=== PATIENT | female | born 1990 | race Caucasian/White ===

== ENCOUNTER 2021-04-01 07:53 | Outpatient (CLI) | payer BC, SELFPAY ==
[2021-04-01 19:01] LABS: Hematocrit 45.7 % (37.0-47.0); Hemoglobin 14.7 g/dL (12.0-15.0); Mean Corpuscular HGB Conc 32.2 g/dl (32-36); Mean Corpuscular Hemoglobin 28.5 pg (26-34); Mean Corpuscular Volume 88.6 fl (80-100); Mean Platelet Volume 10.1 fl (7.4-10.4); Platelet Count Result 331 k/mm3 (150-375); Red Blood Count 5.16 M/mm3 (4.2-5.4); Red Cell Distribution Width 12.6 % (11.5-14.5); White Blood Count 6.5 K/mm3 (4.5-10.0)
[2021-04-01 21:21] LABS: Alanine Aminotransferase 21 U/L (4-35); Albumin Level 4.4 g/dL (3.5-5.1); Alkaline Phosphatase 102 U/L (38-126); Anion Gap 8 mmol/L (8-16); Aspartate Amino Transferase 28 U/L (14-36); Bilirubin,Total 0.5 mg/dL (0.2-1.3); Blood Urea Nitrogen 12 mg/dL (7-17); Calcium 9.7 mg/dL (8.4-10.2); Carbon Dioxide 26 mmol/L (22-30); Chloride 100 mmol/L (98-107); Cholesterol 152 mg/dL (0-200); Estimated Glomerular Filt Rate > 60; Glucose 105 mg/dL (65-110); HDL Direct 64 mg/dL; Potassium 4.2 mmol/L (3.4-5.0); Sodium 134 mmol/L (137-145); Triglycerides 53 mg/dL (<150)
[2021-04-01 21:32] LABS: LDL Cholesterol Direct 74 mg/dL
[2021-04-01 21:42] LABS: Vitamin D 25 Hydroxy 23.5 ng/mL
== END 2021-04-01 07:54 | disposition home or self-care (01) ==
LOC: ANHBWCLAB 07:56
PROVIDERS: PCP Family Medicine; Visit Provider Family Medicine
DX: Z00.00 Encounter for general adult medical examination without abnormal findings (principal); E66.9 Obesity, unspecified; F41.9 Anxiety disorder, unspecified; E53.8 Deficiency of other specified B group vitamins; E55.9 Vitamin D deficiency, unspecified
CPT/HCPCS: 36415; 80053; 80061; 82306; 82607; 85027

== ENCOUNTER 2021-11-08 10:06 | Outpatient (CLI) | payer BC, SELFPAY | END 2021-11-08 10:07 | disposition home or self-care (01) | LOC: ANHBWCLAB 10:08 | PROVIDERS: PCP Family Medicine; Visit Provider Family Medicine | DX: E53.8 Deficiency of other specified B group vitamins (principal); E55.9 Vitamin D deficiency, unspecified | CPT/HCPCS: 36415; 82306; 82607 ==

== ENCOUNTER 2022-06-30 09:45 | Outpatient (CLI) | payer BC, SELFPAY ==
--- NOTE | ~2022-06-30 | XR_ITS ---
XR lumbar spine 2-3V DATE: 06/30/2022 09:55 INDICATION: Low back pain TECHNIQUE: AP, lateral, coned lateral lumbosacral views COMPARISON: None FINDINGS: Normal alignment of the lumbar spine. No fracture or bone destruction or spondylolisthesis. The included lower thoracic and lumbar pedicles are intact. Lumbar and lumbosacral interspaces are w ell preserved. The sacroiliac joints are normal. IMPRESSION: Negative Reviewed, dictated and finalized at location B. [employer] IMPRESSION: Negative
== END 2022-06-30 09:46 | disposition home or self-care (01) ==
LOC: ANHBWCIMG 09:46
PROVIDERS: PCP Family Medicine; Visit Provider Family Medicine
DX: M54.50 Low back pain, unspecified (principal)
CPT/HCPCS: 72100

== ENCOUNTER 2022-09-28 11:14 | Outpatient (CLI) | payer BC, SELFPAY ==
[2022-09-28 17:28] LABS: Alanine Aminotransferase 23 U/L (6-35); Albumin Level 4.6 g/dL (3.5-5.1); Alkaline Phosphatase 88 U/L (38-126); Anion Gap 4 mmol/L (8-16); Aspartate Amino Transferase 61 U/L (14-36); Bilirubin,Total 0.6 mg/dL (0.2-1.3); Blood Urea Nitrogen 7 mg/dL (7-17); Calcium 9.3 mg/dL (8.4-10.2); Carbon Dioxide 30 mmol/L (22-30); Chloride 104 mmol/L (98-107); Cholesterol 139 mg/dL (0-200); Estimated Glomerular Filt Rate > 60; Glucose 95 mg/dL (65-110); HDL Direct 53 mg/dL; Potassium 4.2 mmol/L (3.4-5.0); Sodium 138 mmol/L (137-145); Triglycerides < 30 mg/dL (<150)
[2022-09-28 17:40] LABS: LDL Cholesterol Direct 59 mg/dL
[2022-09-28 18:10] LABS: Basophils Percent Auto 0.3 % (0.2-1.2); Eosinophils Percent Auto 0.1 % (0-4.4); Hematocrit 47.8 % (37.0-47.0); Hemoglobin 15.6 g/dL (12.0-15.0); Immature Granulocyte Absolute 0.04 K/mm3 (0.00-0.031); Immature Granulocyte Percent A 0.5 % (0-0.5); Lymphocytes Absolute Auto 1.11 K/mm3 (0.9-3.2); Lymphocytes Percent Auto 14.5 % (18.3-44.2); Mean Corpuscular HGB Conc 32.6 g/dl (32-36); Mean Corpuscular Hemoglobin 29.8 pg (26-34); Mean Corpuscular Volume 91.4 fl (80-100); Mean Platelet Volume 10.6 fl (7.4-10.4); Monocytes Absolute Auto 0.3 K/mm3 (0.1-0.6); Monocytes Percent Auto 3.3 % (2.6-8.5); Neutrophils Absolute Auto 6.2 K/mm3 (1.3-6.7); Neutrophils Percent Auto 81.3 % (45.5-73.1); Platelet Count Result 373 k/mm3 (150-375); Red Blood Count 5.23 M/mm3 (4.2-5.4); White Blood Count 7.7 K/mm3 (4.5-10.0)
[2022-09-28 18:54] LABS: Vitamin D 25 Hydroxy 38.7 ng/mL
== END 2022-09-28 11:15 | disposition home or self-care (01) ==
LOC: ANHBWCLAB 11:15
PROVIDERS: PCP Family Medicine; Visit Provider Family Medicine
DX: Z00.00 Encounter for general adult medical examination without abnormal findings (principal); F41.9 Anxiety disorder, unspecified; E66.9 Obesity, unspecified; E55.9 Vitamin D deficiency, unspecified; E53.8 Deficiency of other specified B group vitamins; M54.50 Low back pain, unspecified; M54.6 Pain in thoracic spine
CPT/HCPCS: 36415; 80053; 80061; 82306; 82607; 85025

== ENCOUNTER 2022-11-10 07:43 | Outpatient (CLI) | payer BC, SELFPAY ==
--- NOTE | ~2022-11-10 | XR_ITS ---
PA, oblique, and lateral views of the right fifth finger CLINICAL HISTORY: Pain, dog bite FINDINGS: No fracture or dislocation seen. Osseous alignment is anatomic. Joint spaces are preserved. Soft tissues are unremarkable. IMPRESSION: Unremarkable exam. Reviewed, dictated and finalized at location M. IMPRESSION: Unremarkable exam.
== END 2022-11-10 07:44 | disposition home or self-care (01) ==
LOC: ANHBWCIMG 07:44
PROVIDERS: PCP Family Medicine; Visit Provider Nurse Practitioner Family
DX: S69.90XA Unspecified injury of unspecified wrist, hand and finger(s), initial encounter (principal); X58.XXXA Exposure to other specified factors, initial encounter
CPT/HCPCS: 73140

== ENCOUNTER 2023-02-16 10:50 | Outpatient (CLI) | payer BC, SELFPAY ==
[2023-02-16 20:07] LABS: Beta HCG Quantitative < 2.39 mIU/ML
[2023-02-16 20:13] LABS: Basophils Percent Auto 0.4 % (0.2-1.2); Eosinophils Percent Auto 0.6 % (0-4.4); Hematocrit 47.3 % (37.0-47.0); Hemoglobin 14.5 g/dL (12.0-15.0); Immature Granulocyte Absolute 0.03 K/mm3 (0.00-0.031); Immature Granulocyte Percent A 0.6 % (0-0.5); Lymphocytes Absolute Auto 1.33 K/mm3 (0.9-3.2); Lymphocytes Percent Auto 25.2 % (18.3-44.2); Mean Corpuscular HGB Conc 30.7 g/dl (32-36); Mean Corpuscular Hemoglobin 28.7 pg (26-34); Mean Corpuscular Volume 93.5 fl (80-100); Mean Platelet Volume 10.1 fl (7.4-10.4); Monocytes Absolute Auto 0.4 K/mm3 (0.1-0.6); Neutrophils Absolute Auto 3.4 K/mm3 (1.3-6.7); Neutrophils Percent Auto 65.2 % (45.5-73.1); Platelet Count Result 296 k/mm3 (150-375); Red Blood Count 5.06 M/mm3 (4.2-5.4); Red Cell Distribution Width 13.4 % (11.5-14.5); White Blood Count 5.3 K/mm3 (4.5-10.0)
== END 2023-02-16 10:51 | disposition home or self-care (01) ==
LOC: ANHBWCLAB 10:52
PROVIDERS: PCP Nurse Practitioner Adult Health; Visit Provider Family Medicine
DX: R74.01 Elevation of levels of liver transaminase levels (principal); D75.1 Secondary polycythemia; N92.6 Irregular menstruation, unspecified
CPT/HCPCS: 36415; 84702; 85025

== ENCOUNTER 2023-11-14 10:44 | Outpatient (CLI) | payer OTHER, SELFPAY ==
[2023-11-14 19:00] LABS: Hematocrit 45.4 % (37.0-47.0); Hemoglobin 14.3 g/dL (12.0-15.0); Mean Corpuscular HGB Conc 31.5 g/dl (32-36); Mean Corpuscular Hemoglobin 29.1 pg (26-34); Mean Corpuscular Volume 92.5 fl (80-100); Mean Platelet Volume 10.5 fl (7.4-10.4); Platelet Count Result 306 k/mm3 (150-375); Red Blood Count 4.91 M/mm3 (4.2-5.4); Red Cell Distribution Width 12.8 % (11.5-14.5); White Blood Count 6.6 K/mm3 (4.5-10.0)
[2023-11-14 19:03] LABS: Alanine Aminotransferase 22 U/L (6-35); Albumin Level 4.2 g/dL (3.5-5.1); Alkaline Phosphatase 77 U/L (38-126); Anion Gap 5 mmol/L (4-12); Aspartate Amino Transferase 61 U/L (14-36); Bilirubin,Total 0.5 mg/dL (0.2-1.3); Blood Urea Nitrogen 9 mg/dL (7-17); Calcium 9.2 mg/dL (8.4-10.2); Carbon Dioxide 26 mmol/L (22-30); Chloride 105 mmol/L (98-107); Cholesterol 122 mg/dL (0-200); Estimated Glomerular Filt Rate > 60; Glucose 89 mg/dL (65-110); HDL Direct 55 mg/dL; Potassium 4.1 mmol/L (3.4-5.0); Sodium 136 mmol/L (137-145); Triglycerides 43 mg/dL (<150)
[2023-11-14 19:14] LABS: LDL Cholesterol Direct 62 mg/dL
[2023-11-16 15:24] LABS: Insulin Level Total 16.8 uIU/mL
== END 2023-11-14 10:45 | disposition home or self-care (01) ==
PROVIDERS: PCP Nurse Practitioner Adult Health; Visit Provider Nurse Practitioner Adult Health
DX: Z13.9 Encounter for screening, unspecified (principal); E28.2 Polycystic ovarian syndrome; E66.9 Obesity, unspecified
CPT/HCPCS: 36415; 80053; 80061; 83036; 83525; 84443; 85027

== ENCOUNTER 2023-12-29 12:29 | Emergency (ER) | payer OTHER, SELFPAY ==
[2023-12-29 12:44] VITALS: BP 118/80; PULSE 68; RESP 16; TEMP 36.9; O2SAT 100
--- NOTE | 2023-12-29 12:48 | ED.EXTPRO ---
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 The pain came on suddenly. She also reports some tingling to the 4th and 5th fingers intermittently. Pain increases with movement. Currently rates her pain 2/10. No treatment prior to arrival. Related Data Home Medications Medication Instructions Recorded Confirmed No Home Medications 12/29/23 12/29/23 Allergies Allergy/AdvReac Type Severity Reaction Status Date / Time cephalexin [From Keflex] Allergy Unknown Unknown Verified 12/29/23 12:38 Review of Systems Review of Systems: CONSTITUTIONAL: Denies body aches, fever, chills, or sweats. EYES: Denies visual changes, redness, or discharge. ENT: Denies rhinorrhea, congestion, sore throat, or otalgia. CARDIOVASCULAR: Denies chest pain, palpitations, or edema. RESPIRATORY: Denies cough or dyspnea. GASTROINTESTINAL: Denies abdominal pain, nausea, vomiting, or diarrhea. GENITOURINARY: Denies dysuria or hematuria. SKIN: Denies rash, itching, or wounds. MUSCULOSKELETAL: Denies back pain, or myalgia.+ left wrist pain NEUROLOGIC: Denies headache, numbness, or weakness.+ fingers tingling PSYCH: Denies depression or anxiety. PMFSH Past Medical History Medical History Bronchitis Surgical History Surgical History H/O foot surgery Family History Family History Mother Depression Father Hypertension Alcohol abuse Grandparent COPD (chronic obstructive pulmonary disease) Diabetes mellitus Grandparent Uterine cancer Social History Social History Smoking status: Never smoker Alcohol intake: current Drinks per week: 1 Substance use: never Lack of Transportation: No Lack of Food: Never True Current Housing: I Have Housing Concerned About Future Housing: No Difficulty Paying Gas/Electric Bills: No Difficulty Paying for Meds: No Currently Unemployed: No Education: Trade/Vocational Certificate Difficulty w/ Childcare or Family Care: No Comments At time of signature, I have reviewed and agree with nursing past medical, surgical, social and family history unless otherwise noted. Please see nursing chart for further information. There is no relevant family history pertinent to the presenting complaint Exam Narrative: GENERAL: Well-appearing, well-nourished, and in no acute distress. HEAD: Normocephalic, atraumatic. EYES: EOMI. No redness or drainage. Conjunctivae normal. ENT: Mucous membranes pink and moist. NECK: Normal AROM. CHEST: No respiratory distress. EXTREMITIES: Left wrist: Tenderness to the volar aspect of the distal radius. No deformity, edema, ecchymosis, erythema noted. No tenderness to the volar aspect. Distal sensation intact. Capillary refill normal. Radial pulse normal. Pain full flexion.. No pain with extension, pronation, supination. SKIN: Warm, dry, no rash. Capillary refill normal. Normal skin turgor. NEURO: No focal deficits. Alert and oriented x3. Gait steady. PSYCH: Normal affect. No signs of depression or anxiety. Course Course Level of Care: Express Care Visit Vital Signs Vital signs: Vital Signs Temperature 98.5 F 12/29/23 12:44 Pulse Rate 68 12/29/23 12:44 Respiratory Rate 16 12/29/23 12:44 Blood Pressure 118/80 12/29/23 12:44 Pulse Oximetry 100 12/29/23 12:44 Temperature 98.5 F
== END 2023-12-29 12:53 | disposition home or self-care (01) ==
PROVIDERS: Emergency Provider Nurse Practitioner; PCP Family Medicine
DX: M25.532 Pain in left wrist (principal)
CPT/HCPCS: 99212; G0463